=== PATIENT | female | born 1985 | race Caucasian/White ===

== ENCOUNTER 2024-10-05 09:06 | Emergency (ER) | payer BC, SELFPAY ==
[2024-10-05] VITALS (13 sets, daily range): BP systolic 126–145; BP diastolic 77–92; PULSE 85–98; RESP 18–28; TEMP 36.5; O2SAT 96–100; BMI 37.2
--- NOTE | 2024-10-05 09:21 | EKG_ITS ---
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
[2024-10-05 09:57] LABS: Add Manual Diff / Slide Review NO; Basophils Absolute Auto 100 /uL (0-100); Basophils Percent Auto 0.6 % (0-2); Eosinophils Absolute Auto 100 /uL (0-450); Eosinophils Percent Auto 0.8 % (2-4); Hematocrit 39.5 % (36-46); Hemoglobin 13.2 g/dL (12.0-16.0); Lymphocytes Absolute Auto 1400 /uL (1100-4500); Lymphocytes Percent Auto 10.2 % (25-40); Mean Corpuscular HGB Conc 33.6 % (30-36); Mean Corpuscular Hemoglobin 28.7 PG (26-34); Mean Corpuscular Volume 85.6 fL (80-100); Monocytes Absolute Auto 600 /uL (0-900); Monocytes Percent Auto 4.6 % (3-14); Neutrophils Absolute Auto 11300 /uL (1500-7000); Neutrophils Percent Auto 83.8 % (50-75); Platelet Count 349 X10^3/uL (150-400); Red Blood Cell Count 4.61 X10^6/uL (4.0-5.2); White Blood Cell Count 13.4 X10^3/uL (4.5-11.0)
[2024-10-05 10:13] LABS: INR 1.1 (0.9-1.3); Prothrombin Time 12.4 SECONDS (9.4-12.5)
[2024-10-05 10:16] LABS: Alanine Aminotransferase 26 IU/L (<35); Albumin 4.4 g/dL (3.5-5.0); Albumin Globulin Ratio 1.5 (1.0-2.8); Alkaline Phosphatase 86 U/L (38-126); Aspartate Aminotransferase 26 IU/L (14-36); BUN Creatinine Ratio 13.8 (6-22); Bilirubin Total 0.5 mg/dL (0.2-1.3); Blood Urea Nitrogen 11 mg/dL (7-17); Calcium 9.4 mg/dL (8.4-10.2); Carbon Dioxide 20 mmol/L (22-32); Chloride 108 mmol/L (98-107); Estimated Glomerular Filt Rate > 60 mL/min (>60); Globulin 2.9 g/dL (1.7-4.1); Glucose 115 mg/dL (70-100); HEMOLYSIS < 15 (0-50); PTT Partial Thromboplastin Tim 32 SECONDS (25.1-36.5); Potassium 4.3 mmol/L (3.4-5.1); Sodium 138 mmol/L (137-145); Total Protein 7.3 g/dL (6.3-8.2)
[2024-10-05] MEDS: PANTOPRAZOLE 40 MG VIAL 80 MG IV (11:59)
[2024-10-05] MEDS: SODIUM CHLORIDE 0.9% 1,000 ML 1000 ML IV (12:00)
--- NOTE | 2024-10-05 13:25 | ED_ITS ---
HPI - Abdominal Pain General Chief Complaint: Abdominal Pain Stated Complaint: Sent from [facility], food poisoning? concern for E. coli Time Seen by Provider: 10/05/24 12:51 Source: patient Mode of arrival: Ambulatory History of Present Illness HPI narrative: Patient is a 39-year-old female presenting today with 2 days of bloody diarrhea. Concern for a Ecoli. She reports that she went out with friends last night they altered appetite seizures and dinner some other people had some stomach cramping but she is only 1 who has had severe abdominal pain cramping and bloody diarrhea. She reports she has had fever chills and sweats throughout the night. At least 6 episodes of bloody stool. No prior colonoscopy. Not on antiplatelet or anticoagulation medication. She has now been in the ED for almost 4 hours no diarrhea or bloody stool here. No nausea or vomiting abdomen is feeling better. She was overall feeling much better. Related Data Previous Rx's Medication Instructions Recorded ondansetron 4 mg disintegrating 4 mg PO Q8H PRN nausea and 10/05/24 tablet vomiting #10 tabs Allergies Allergy/AdvReac Type Severity Reaction Status Date / Time Penicillins Allergy Hives Verified 10/05/24 11:46 Patient History Social History Smoking Status: Current some day smoker Smoking Status: Current some day smoker Exam Initial Vital Signs Initial Vital Signs: Vital Signs Temperature 97.7 F 10/05/24 09:15 Pulse Rate 96 H 10/05/24 09:15 Respiratory Rate 18 10/05/24 09:15 Blood Pressure 131/80 10/05/24 09:15 Pulse Oximetry 96 10/05/24 09:15 Oxygen Delivery Method Room Air 10/05/24 09:15 GENERAL: Well-appearing, well-nourished and in no acute distress. HEENT: Head atraumatic,EOMI, pupils reactive, face symmetric, moist mucous membranes CARDIOVASCULAR: Regular rate and rhythm without murmurs, rubs or gallops. RESPIRATORY: Breath sounds equal bilaterally, no wheezes rales or rhonchi. ABDOMEN: Soft, nontender. No distention Normoactive bowel sounds all 4 quadrants. No guarding or rebound. EXTREMITIES: Normal range of motion, no clubbing or edema. Neurovascularly intact NEUROLOGICAL: Alert and oriented x4.Normal gait and speech. Cranial nerves II through XII grossly intact. SKIN: Warm, dry, no laceration, no petechiae, no rashes or lesions. Course Orders Ordered: ED Orders 10/05/24 11:50 Type and Screen Stat Discontinued Medications Sodium Chloride (Normal Saline 0.9%) 1,000 mls @ 1,000 mls/hr IV BOLUS ONE Stop: 10/05/24 11:15 Last Infusion: 10/05/24 13:08 Dose: Infused Documented By: Admin: 10/05/24 12:00 Dose: 1,000 mls/hr Documented By: RB Ondansetron HCl (Ondansetron 4 Mg/2 Ml Inj) 4 mg IV NOW PRN PRN Reason: Nausea And Vomiting Ondansetron HCl (Ondansetron 4 Mg Odt) 4 mg SL NOW PRN PRN Reason: Nausea And Vomiting Pantoprazole Sodium (Pantoprazole 40 Mg Vial) 80 mg IV NOW ONE Stop: 10/05/24 09:22 Last Admin: 10/05/24 11:59 Dose: 80 mg Documented By: LALO Vital Signs Vital signs: Vital Signs - 8 hr 10/05/24 11:28 10/05/24 11:29 10/05/24 11:29 Pulse Rate 96 H 98 H Respiratory Rate Blood Pressure 130/78 Pulse Oximetry 96 96 10/05/24 11:38 10/05/24 11:38 10/05/24 12:00 Pulse Rate 95 H 86 Respiratory Rate 26 H Blood Pressure 139/77 Pulse Oximetry 97 97 10/05/24 12:23 10/05/24 12:23 10/05/24 12:30 Pulse Rate 88 88 Respiratory Rate 22 22 Blood Pressure 145/92 H Pulse Oximetry 97 98 10/05/24 12:31 10/05/24 12:31 10/05/24 12:45 Pulse Rate 89 Respiratory Rate 24 Blood Pressure 128/89 128/84 Pulse Oximetry 98 10/05/24 12:45 10/05/24 13:03 10/05/24 13:04 Pulse Rate 85 92 H Respiratory Rate 20 23 Blood Pressure 130/88 Pulse Oximetry 100 97 10/05/24 13:04 10/05/24 13:15 10/05/24 13:15 Pulse Rate 90 87 Respiratory Rate 24 22 Blood Pressure 126/87 Pulse Oximetry 99 99 10/05/24 13:30 10/05/24 13:30 Pulse Rate 93 H Respiratory Rate 28 H Blood Pressure 131/88 Pulse Oximetry 99 MDM - Abdominal Pain Lab Data 10/05/24 09:45 10/05/24 09:45 Labs: Lab Results 10/05/24 10/05/24 Range/Units 09:45 11:50 WBC 13.4 H (4.5-11.0) X10^3/uL RBC 4.61 (4.0-5.2) X10^6/uL Hgb 13.2 (12.0-16.0) g/dL Hct 39.5 (36-46) % MCV 85.6 (80-100) fL MCH 28.7 (26-34) PG MCHC 33.6 (30-36) % RDW 13.0 (11.6-14.8) % Plt Count 349 (150-400) X10^3/uL Neut % (Auto) 83.8 H (50-75) % Lymph % (Auto) 10.2 L (25-40) % [place] % (Auto) 4.6 (3-14) % Eos % (Auto) 0.8 L (2-4) % Baso % (Auto) 0.6 (0-2) % Neut # (Auto) 93735 H (8593-8076) /uL Lymph # (Auto) 1400 (5417-4520) /uL [place] # (Auto) 600 (0-900) /uL Eos # (Auto) 100 (0-450) /uL Baso # (Auto) 100 (0-100) /uL PT 12.4 (9.4-12.5) SECONDS INR 1.1 (0.9-1.3) APTT 32 (25.1-36.5) SECONDS Sodium 138 (137-145) mmol/L Potassium 4.3 (3.4-5.1) mmol/L Chloride 108 H (98-107) mmol/L Carbon Dioxide 20 L (22-32) mmol/L BUN 11 (7-17) mg/dL Creatinine 0.80 (0.52-1.04) mg/dL Estimated GFR > 60 (>60) mL/min BUN/Creatinine Ratio 13.8 (6-22) Glucose 115 H (70-100) mg/dL Calcium 9.4 (8.4-10.2) mg/dL Total Bilirubin 0.5 (0.2-1.3) mg/dL AST 26 (14-36) IU/L ALT 26 (<35) IU/L Alkaline Phosphatase 86 (38-126) U/L Total Protein 7.3 (6.3-8.2) g/dL Albumin 4.4 (3.5-5.0) g/dL Globulin 2.9 (1.7-4.1) g/dL Albumin/Globulin Ratio 1.5 (1.0-2.8) Blood Type O Positive Antibody Screen Negative Point of care testing: Point of Care Testing Test Results Negative Urine Dip Bedside Urine Glucose Negative Bedside Urine Bilirubin - Negative Bedside Urine Ketone - Negative Urine Specific [place] 1.015 Bedside Urine Occult Blood - Negative Bedside Urine pH 6.0 Bedside Urine Protein - Negative Bedside Urine Urobilinogen - Negative Bedside Urine Nitrite - Negative Bedside Urine Leukocytes - Negative Esterase MDM Narrative Medical decision making narrative: Patient is a 39-year-old female presenting today with 6 episodes of bloody stool abdominal cramping fever and chills. It has been going on for about 2 days. Abdomen is soft nontender vitals are stable. She showed me a photo of blood in the toilet which does appear to be extensive there is no stool noted. Blood work has been reviewed leukocytosis of 13.4, hemoglobin 13.2 hematocrit 39.5 platelets 349 CMP sodium 138 potassium 4.3 chloride 108 carbon dioxide 20 BUN 11 creatinine 0.8 Bilirubin AST ALT alk-phos all within normal limits Patient's vitals remained stable she received 1 L of fluids Protonix and Zofran. Overall feeling better. I suspect that she has a infection with fever and chills mild leukocytosis. She was not anemic despite multiple episodes of bloody stool. I suspect a gastroenteritis rather than an occult GI bleed. We discussed CT scan. She was unable to produce a stool sample while in the ED. She at this time feels ready able to go home. We discussed strict return precautions. May need further evaluation. Discharge Plan Departure Patient Disposition: Home Clinical Impression: Gastroenteritis Instructions: DI for Viral Gastroenteritis -- Adult Activity Restrictions/Additional Instructions: *You have been diagnosed with gastroenteritis *What to do: Increase fluids as tolerated. Recommend Pedialyte liquid IV Gatorade juice suddenly with sugar or salt. I anticipate the bloody diarrhea slows down. You will ultimately need an outpatient colonoscopy. *Continue to take medications as directed Zofran 4 mg every 8 hours if needed for nausea or vomiting Tylenol 1000 mg every 6 hours if needed for [id number] pain *Follow up with your primary care provider in 2-3 days or call [phone] *Return to ER if you should have increasing pain persistent bloody stools dizziness lightheadedness passing a or any new, worsening or concerning symptoms Prescriptions: New ondansetron 4 mg tablet,disintegrating 4 mg PO Q8H PRN (Reason: nausea and vomiting) Qty: 10 0RF Referrals: Miscellaneous,Doctor, MD [Primary Care Provider] - Stand Alone Forms: Patient Portal/API/Survey
== END 2024-10-05 13:59 | disposition home or self-care (01) ==
PROVIDERS: Emergency Provider Emergency Medicine
DX: K52.9 Noninfective gastroenteritis and colitis, unspecified (principal); K92.1 Melena
CPT/HCPCS: 36415; 80053; 81003; 81025; 85025; 85610; 85730; 86850; 86900; 86901; 93005; 96361; 96374; 99284; J2470